=== PATIENT | male | born 1990 | race Caucasian/White ===

== ENCOUNTER 2022-06-26 10:38 | Emergency (ER) | payer OTHER ==
[~2022-06-26] VITALS: Ht 175 cm; Wt 102.0 kg
[2022-06-26] MEDS ORDERED: NS 100 ML (IVPB) BAG IV ONE (11:15)
[2022-06-26] MEDS ORDERED: IOHEXOL 350 MG/ML 100 ML (OMNIPAQUE 350) VIAL IV ONE (11:15)
--- NOTE | 2022-06-26 11:15 | ED EENT ---
History of Present Illness General Chief Complaint: Oral/Throat Problems Stated Complaint: SORE THROAT | LIGHTHEADED | POOR CIRCULATION Nursing Triage Note: PT STATES HE WAS SEEN AT [facility] AND SENT HERE, COLD FINGERS AND TOES, SWOLLEN THROAT AND LIGHT HEADED FOR 2 WEEKS Source: patient Exam Limitations: no limitations History of Present Illness Date Seen by Provider: Jun 26, 2022 Time Seen by Provider: 11:11 Initial Comments Patient is a 31-year-old male who presents the ED with neck pain. Patient states he has been having neck discomfort over the past 2 weeks. He feels like something is squeezing his neck. States this has been ongoing for the past 2 weeks. Feels like his throat is closing up. Went to [facility] 2 weeks ago was given at Protonix but no improvement. Has been on Nexium in the past for acid reflux. Does report some belching feel like food gets stuck in his throat. Today he felt lightheaded and felt like his toes and fingers were cool. Unclear if this was secondary to the cooler weather or poor circulation. Denies history of heart disease, CHF, COPD, asthma. Denies of any chest pain, cough, shortness of breath, abdominal pain vomiting or diarrhea. Denies history of similar symptoms. No history of thyroid disease. Denies of any rash or history of allergies Allergies and Home Medications Allergies Coded Allergies: No Allergy Information Available (Unverified , 06/26/22) Patient Home Medication List Home Medication List Reviewed: Yes Review of Systems Review of Systems Constitutional: No chills, No diaphoresis, No fever, No malaise, No weakness Eyes: Denies Blurred Vision, Denies Decreased Acuity, Denies Photophobia Ears: Denies Dizziness, Denies Pain Nose: denies congestion, denies pain, denies bloody discharge Mouth: denies loose teeth, denies bloody discharge, denies clear discharge Throat: pain, swelling; denies painful swallowing Respiratory: No cough, No dyspnea on exertion Cardiovascular: No chest pain Gastrointestinal: No abdominal pain, No diarrhea, No nausea, No vomiting Musculoskeletal: No back pain, No joint pain Skin: No change in color, No change in hair/nails All Other Systems Reviewed Negative Unless Noted: Yes Past Tnlyurx-Pdtkfh-Xizcaq Hx Patient Social History Tobacco Use?: Yes Use of E-Cig and/or Vaping dev: Yes E-Cig or Vaping type used: Nicotine Substance use?: No Alcohol Use?: No Past Medical History Surgery/Hospitalization HX: DENIES MED HX Physical Exam Vital Signs Vital Signs - First Documented 06/26/22 11:01 Temp 36.6 Pulse 97 Resp 18 B/P (MAP) 158/92 (114) Pulse Ox 98 O2 Delivery Room Air Height, Weight, BMI Height: '" Weight: lbs. oz. kg; 33.00 BMI Method: General Appearance: WD/WN, no apparent distress Eyes: bilateral eye normal inspection, bilateral eye PERRL, bilateral eye EOMI Ears: bilateral ear auricle normal, bilateral ear canal normal, bilateral ear TM normal Nose: normal inspection Mouth/Throat: normal mouth inspection, pharynx normal; No dental tenderness; other (Thyroid tenderness. No evidence enlargement of the thyroid. No redness or swelling of the neck) Neck: full range of motion, supple; No carotid bruit, No limited range of motion; other (No evidence enlargement of the thyroid) Cardiovascular: regular rate, rhythm, no edema, no gallop, no JVD Respiratory: chest non-tender, lungs clear, normal breath sounds, no respiratory distress, no accessory muscle use Gastrointestinal: normal bowel sounds, non tender, soft, no organomegaly Neurologic/Psychiatric: recycling coordinator II-XII nml as tested, no motor/sensory deficits, alert, normal mood/affect, oriented x 3 Skin: normal color, warm/dry, other (Cap refill less than 2.) Progress/Results/Core Measures Results/Orders Lab Results Laboratory Tests Test 06/26/22 11:15 Range/Units White Blood Count 5.6 4.3-11.0 10^3/uL Red Blood Count 5.63 H 4.30-5.52 10^6/uL Hemoglobin 17.2 13.3-17.7 g/dL Hematocrit 49 40-54 % Mean Corpuscular Volume 87 80-99 fL Mean Corpuscular Hemoglobin 31 25-34 pg Mean Corpuscular Hemoglobin Concent 35 32-36 g/dL Red Cell Distribution Width 12.6 10.0-14.5 % Platelet Count 236 130-400 10^3/uL Mean Platelet Volume 9.7 9.0-12.2 fL Immature Granulocyte % (Auto) 1 % Neutrophils (%) (Auto) 63 42-75 % Lymphocytes (%) (Auto) 24 12-44 % Monocytes (%) (Auto) 8 0-12 % Eosinophils (%) (Auto) 5 0-10 % Basophils (%) (Auto) 0 0-10 % Neutrophils # (Auto) 3.5 1.8-7.8 10^3/uL Lymphocytes # (Auto) 1.3 1.0-4.0 10^3/uL Monocytes # (Auto) 0.4 0.0-1.0 10^3/uL Eosinophils # (Auto) 0.3 0.0-0.3 10^3/uL Basophils # (Auto) 0.0 0.0-0.1 10^3/uL Immature Granulocyte # (Auto) 0.0 0.0-0.1 10^3/uL Sodium Level 141 135-145 MMOL/L Potassium Level 3.8 3.6-5.0 MMOL/L Chloride Level 108 H 98-107 MMOL/L Carbon Dioxide Level 22 21-32 MMOL/L Anion Gap 11 5-14 MMOL/L Blood Urea Nitrogen 8 7-18 MG/DL Creatinine 1.12 0.60-1.30 MG/DL Estimat Glomerular Filtration Rate 90 BUN/Creatinine Ratio 7 Glucose Level 96 70-105 MG/DL Calcium Level 9.6 8.5-10.1 MG/DL Corrected Calcium 8.5-10.1 MG/DL Total Bilirubin 0.4 0.1-1.0 MG/DL Aspartate Amino Transf (AST/SGOT) 27 5-34 U/L Alanine Aminotransferase (ALT/SGPT) 67 H 0-55 U/L Alkaline Phosphatase 61 40-136 U/L Total Protein 8.2 6.4-8.2 GM/DL Albumin 4.6 H 3.2-4.5 GM/DL Thyroid Stimulating Hormone (TSH) 2.71 0.35-4.94 UIU/ML My Orders Orders - BHUPINDER TELLO Cbc With Automated Diff (06/26/22 11:10) Comprehensive Metabolic Panel (06/26/22 11:10) Thyroid Stimulating Hormone (06/26/22 11:10) Ct Neck (Soft Tissue) W (06/26/22 11:10) Iohexol Injection (Omnipaque 350 Mg/Ml 1 (06/26/22 11:15) Ns (Ivpb) (Sodium Chloride 0.9% Ivpb Bag (06/26/22 11:15) Medications Given in ED Current Medications Medications Dose Ordered Sig/Radha Route Start Time Stop Time Status Last Admin Dose Admin Iohexol 100 ml ONCE ONCE IV 06/26/22 11:15 06/26/22 11:16 DC 06/26/22 11:38 75 ML Sodium Chloride 100 ml ONCE ONCE IV 06/26/22 11:15 06/26/22 11:16 DC 06/26/22 11:39 80 ML Vital Signs/I&O 06/26/22 11:01 Temp 36.6 Pulse 97 Resp 18 B/P (MAP) 158/92 (114) Pulse Ox 98 O2 Delivery Room Air Blood Pressure Mean: 114 Departure Communication (PCP) Patient is a 31-year-old male who presents ED with throat pain, difficulty swallowing feels like suffocation around his neck. On arrival his vital signs stable. No evidence of stridor. Did have tenderness to the thyroid on palpation without any nodule appearance or on palpation. Normal thyroid tracking. No evidence of Misael angina. No cervical adenopathy. Oropharynx patent. Due to his current complaint and was sent from his primary care physician for further evaluation. Denies chest pain, cough, shortness of breath or flulike symptoms. differential diagnosis of thyromegaly, esophagitis, pharyngitis, retropharyngeal abscess. CBC, CMP, TSH was ordered. Patient CBC, CMP was otherwise unremarkable. Oropharynx did not appear to be strep like without exudate or erythema. Lung sounds clear bilateral. Due to current complaints CT soft tissue was ordered which did not show any acute abnormality. No evidence of abscess, epiglottitis, retropharyngeal abscess, thyromegaly. Discussed all results with patient. I do believe this is probably more related to esophagitis. Does have a history of GERD. He is currently on Protonix. He states it feels like food gets stuck down into his throat. Would likely benefit with outpatient EGD. Discussed soft foods and diet changes. Return precautions were discussed with patient. Impression Primary Impression: Neck pain Disposition: HOME, SELF-CARE Condition: Stable Departure-Patient Inst. Decision time for Depature: 12:34 Referrals: [facility] (PCP/Family) Primary Care Physician Patient Instructions: Neck Pain ED Add. Discharge Instructions: Continue with your Protonix. Avoid spicy foods, carbonated beverages, limiting, fatty foods. Return back to ED if symptoms worsen All discharge instructions reviewed with patient and/or family. Voiced understanding. BHUPINDER TELLO Jun 26, 2022 11:15
[2022-06-26 11:53] LABS: BASOPHILS % (AUTO) 0 % (0-10); EOSINOPHILS # (AUTO) 0.3 10^3/uL (0.0-0.3); EOSINOPHILS % (AUTO) 5 % (0-10); HEMATOCRIT 49 % (40-54); HEMOGLOBIN 17.2 g/dL (13.3-17.7); LYMPHOCYTES # (AUTO) 1.3 10^3/uL (1.0-4.0); LYMPHOCYTES % (AUTO) 24 % (12-44); MEAN CORPUSCULAR HEMOGLOBIN 31 pg (25-34); MEAN CORPUSCULAR HGB CONC 35 g/dL (32-36); MEAN CORPUSCULAR VOLUME 87 fL (80-99); MEAN PLATELET VOLUME 9.7 fL (9.0-12.2); MONOCYTES # (AUTO) 0.4 10^3/uL (0.0-1.0); MONOCYTES % (AUTO) 8 % (0-12); NEUTROPHILS # (AUTO) 3.5 10^3/uL (1.8-7.8); NEUTROPHILS % (AUTO) 63 % (42-75); PLATELET COUNT 236 10^3/uL (130-400); WHITE BLOOD COUNT 5.6 10^3/uL (4.3-11.0)
[2022-06-26 11:57] LABS: ALBUMIN 4.6 GM/DL (3.2-4.5); CHLORIDE 108 MMOL/L (98-107); POTASSIUM 3.8 MMOL/L (3.6-5.0); SODIUM 141 MMOL/L (135-145)
[2022-06-26 11:59] LABS: CALCIUM 9.6 MG/DL (8.5-10.1)
[2022-06-26 12:00] LABS: GLUCOSE 96 MG/DL (70-105); TOTAL PROTEIN 8.2 GM/DL (6.4-8.2)
[2022-06-26 12:01] LABS: CARBON DIOXIDE 22 MMOL/L (21-32)
[2022-06-26 12:02] LABS: BILIRUBIN,TOTAL 0.4 MG/DL (0.1-1.0)
[2022-06-26 12:03] LABS: ALKALINE PHOSPHATASE 61 U/L (40-136); CREATININE SERUM 1.12 MG/DL (0.60-1.30); GFR ESTIMATED 90
[2022-06-26 12:05] LABS: BUN/CREATININE RATIO 7
[2022-06-26 12:06] LABS: ALANINE AMINOTRANSFERASE 67 U/L (0-55)
--- NOTE | 2022-06-26 12:09 | Diagnostic Imaging Report ---
PROCEDURE: CT neck soft tissue with contrast. TECHNIQUE: Multiple contiguous axial images were obtained through the neck after the administration of contrast. Auto Exposure Controls were utilized during the CT exam to meet ALARA standards for radiation dose reduction. INDICATION: Swelling in the throat. Neck tightness. Lightheadedness. COMPARISON: None. FINDINGS: The posterior nasopharynx and oropharynx demonstrate appropriate symmetry. There is no displacement of the parapharyngeal fat planes. There is no abnormal process evident within the prevertebral or retropharyngeal space. There is no evidence of abnormal thickening of the epiglottis or aryepiglottic folds. The vocal folds appear symmetric. The parotid, submandibular and thyroid gland are unremarkable. Mildly prominent cervical lymph nodes are seen in the neck bilaterally. No pathologically enlarged lymphadenopathy. No focal inflammatory changes are demonstrated. No soft tissue mass or fluid collection demonstrated. The vascular structures the neck demonstrate no evidence of high-grade stenosis on this nondedicated exam. The visualized lung apices are clear. The visualized intracranial contents demonstrate no evidence of pathologic intracranial enhancement or intracranial mass effect. Visualized orbital contents are unremarkable. Mucosal thickening is seen in the bilateral ethmoid and maxillary sinuses. The mastoids and middle ears are clear. No acute osseous abnormality in the cervical spine. IMPRESSION: 1. Appropriate symmetry of the aerodigestive tract. No mass or fluid collection. No airway compromise. 2. No evidence of pathologic adenopathy. 3. Mild paranasal sinus disease. Dictated by: Dictated on workstation # [id number]
[2022-06-26 12:42] VITALS: BP 138/98
== END 2022-06-26 12:42 | disposition home or self-care (01) ==
LOC: EDUNIT# 10:38 → ER 10:45
DX: M54.2 Cervicalgia (principal); R07.0 Pain in throat; R13.10 Dysphagia, unspecified; F17.290 Nicotine dependence, other tobacco product, uncomplicated; K21.9 Gastro-esophageal reflux disease without esophagitis; Z79.899 Other long term (current) drug therapy; Z28.310 Unvaccinated for COVID-19
CPT/HCPCS: 36415; 70491; 80053; 84443; 85025

== ENCOUNTER 2022-08-02 05:56 | Outpatient (CLI) | payer OTHER ==
[~2022-08-02] VITALS: Ht 175.3 cm; Wt 97.1 kg
[2022-08-02] MEDS ORDERED: PANT40TA52 PO (09:53)
== END 2022-08-02 09:56 | disposition home or self-care (01) ==
LOC: PREOP 05:56
PROVIDERS: ATTEND Surgery
DX: Z01.818 Encounter for other preprocedural examination (principal)

== ENCOUNTER 2022-08-10 13:06 | Day surgery (SDC) | payer OTHER ==
[~2022-08-10] VITALS: Ht 175.3 cm; Wt 97.1 kg
[~2022-08-10 13:06] MED LIST: PANT40TA52 PO
[2022-08-10 13:20] VITALS: BP 128/80
[2022-08-10] MEDS ORDERED: LACTATED RINGERS 1,000 ML IV STA (13:21)
[2022-08-10] MEDS ORDERED: HURRICAINE EXT TUBE (BENZOCAINE) XX PRN (13:30)
[2022-08-10] MEDS ORDERED: PROPOFOL INJECTION 50 ML IV ONE (14:20)
--- NOTE | 2022-08-10 15:03 | Progress Note-Pre Operative ---
Pre-Operative Progress Note Date H&P Reviewed: Aug 10, 2022 Time H&P Reviewed: 15:03 History & Physical: H&P Reviewed, Patient Examed, No changes noted Pre-Operative Diagnosis: gerd dysphagia GEN ROJAS DO Aug 10, 2022 15:03
[2022-08-10 15:25] VITALS: BP 116/59
--- NOTE | 2022-08-10 15:26 | Discharge Inst-Simple/Standard ---
Discharge Inst-Standard Reconcile Patient Problems Problems Reviewed?: Yes Patient Instructions/Follow Up Plan of Care/Instructions/FU: F/u with Dr. Bermeo in 2 weeks Activity as Tolerated: Yes Discharge Diet: No Restrictions, Regular Diet GEN BERMEO DO Aug 10, 2022 15:26
--- NOTE | 2022-08-10 15:27 | Progress Note-Post Operative ---
Post-Operative Progess Note Surgeon (s)/Nitroglycerin Distributor (s) Surgeon GEN ROJAS DO Nitroglycerin Distributor: n/a Pre-Operative Diagnosis gerd, dysphagia Post-Operative Diagnosis slight gastritis Procedure & Operative Findings Date of Procedure 08/10/22 Procedure Performed/Findings EGD with biopsies Anesthesia Type per instrument processing tech Estimated Blood Loss Estimated blood loss (mL): none Specimens/Packing Specimens Removed GE and antrum biopsies GEN ROJAS DO Aug 10, 2022 15:27
[2022-08-10 15:35] VITALS: BP 116/59
[2022-08-10 15:48] VITALS: BP 116/59
--- NOTE | 2022-08-10 15:54 | Anesthesia-General Post-Op ---
MAC Patient Condition Mental Status/LOC: Same as Preop Cardiovascular: Satisfactory Nausea/Vomiting: Absent Respiratory: Satisfactory Pain: Controlled Complications: Absent Post Op Complications Complications None Follow Up Care/Instructions Patient Instructions None needed. Anesthesiology Discharge Order Discharge Order Patient is doing well, no complaints, stable vital signs, no apparent adverse anesthesia problems. No complications reported per nursing. RUDDY MCCARTHY CRNA Aug 10, 2022 15:54
--- NOTE | 2022-08-10 21:10 | OPERATIVE REPORT ---
DATE OF SERVICE: 08/10/2022 PREOPERATIVE DIAGNOSES: Gastroesophageal reflux disease, dysphagia. POSTOPERATIVE DIAGNOSIS: Slight gastritis. PROCEDURE: EGD with biopsy. SURGEON: Gen Bermeo DO ANESTHESIA: Per MANAGER STORE. ESTIMATED BLOOD LOSS: None. COMPLICATIONS: None. INDICATIONS: The patient is a 31-year-old male with dysphagia symptoms and gastroesophageal reflux disease. He understands risks and benefits of procedure and wished to proceed. Consent was signed in chart. DESCRIPTION OF PROCEDURE: The patient was taken to endoscopy suite, placed in left lateral recumbent position. Timeout was performed. Scope was inserted in the mouth, down the esophagus, stomach, into the duodenum without difficulty. No polyps, masses or ulcerations within the duodenum. Scope was slowly retracted back until stomach where it was further insufflated. Slight erythematous changes present, maybe slight gastritis. Biopsy of the antrum was obtained. Scope was retroflexed noting no other pathology. Scope was returned to its normal position, slowly withdrawn until completely removed. Biopsy of GE junction was obtained. No polyps, masses or ulcerations. Scope was slowly retracted back until completely removed. The patient tolerated the procedure well without any complications, taken to recovery room in stable condition. RECOMMENDATIONS: The patient will continue on current medications. Await biopsy results. We follow up in 2 weeks. Job ID: [id number] DocumentID: [id number] Dictated Date: 08/10/2022 15:28:54 Refinery Operator Date: 08/10/2022 21:08:00 Dictated By: GEN BERMEO DO
== END 2022-08-10 15:55 | disposition home or self-care (01) ==
LOC: ENDO 13:06
PROVIDERS: ATTEND Surgery
DX: K29.70 Gastritis, unspecified, without bleeding (principal); K21.00 Gastro-esophageal reflux disease with esophagitis, without bleeding; F17.290 Nicotine dependence, other tobacco product, uncomplicated; Z79.899 Other long term (current) drug therapy; Z28.310 Unvaccinated for COVID-19